=== PATIENT | female | born 1970 | race Two or more races ===

== ENCOUNTER 2021-05-10 18:30 | Emergency (ER) | payer OTHER, BC, SELFPAY ==
[~2021-05-10] VITALS: Ht 157.5 cm; Wt 54.4 kg
[2021-05-10 18:30] VITALS: BP_SYST 138
--- NOTE | 2021-05-10 18:30 | NUR ---
BROUGHT BACK TO BED #5 AND TRIAGED. REPORT GIVEN TO MILY
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
--- NOTE | 2021-05-10 19:25 | NUR ---
REPORT GIVEN TO ELVI RAINES FOR CONTINUING CARE
[2021-05-10 22:05] VITALS: BP_SYST 115
--- NOTE | 2021-05-10 22:06 | NUR ---
Patient given written and verbal discharge instructions and verbalizes understanding. ER MD discussed with patient the results and treatment provided. Patient in stable condition. ID arm band removed. Patient educated on pain management and to follow up with PMD. Pain Scale 2. Opportunity for questions provided and answered. Medication side effect fact sheet provided.
== END 2021-05-10 22:05 | disposition home or self-care (01) ==
LOC: SED 18:30
DX: S16.1XXA Strain of muscle, fascia and tendon at neck level, initial encounter (principal); S09.90XA Unspecified injury of head, initial encounter; V49.49XA Driver injured in collision with other motor vehicles in traffic accident, initial encounter; Y93.89 Activity, other specified; Y92.89 Other specified places as the place of occurrence of the external cause; Y99.8 Other external cause status
CPT/HCPCS: 70450-TC; 76376; 99284